=== PATIENT | female | born 1995 | race American Indian/Alaskan Native ===

== ENCOUNTER 2016-11-20 16:10 | Emergency (ER) | payer OTHER ==
[2016-11-20 17:13] VITALS: BMI 30.5
[2016-11-20 17:18] VITALS: PULSE 74; TEMP 98.4
[2016-11-20 19:17] VITALS: BP 140/83; RESP 17; O2SAT 100
--- NOTE | 2016-11-20 19:30 | ED PDOC ---
Arrival/HPI - General Chief Complaint: Abdominal Pain Time Seen by Provider: 11/20/16 17:56 Historian: Patient - History of Present Illness Narrative History of Present Illness (Text): 11/20/16 19:12 21yr old female presents today concerned of . pt states she had unprotected sex with her boyfriend and another person and is worried that she may be . pt states she did take the morning after pill after the unprotected sex with the tonny who is not her boyfriend. pt states her LMP was , and on 11/09 she had 3 days of vaginal bleeding after taking the morning after pill. pt denies any pain. denies urinary symptoms. no fever/chills. no cp or sob. no vaginal bleeding or discharge. no other complaints. Past Medical History - Provider Review Nursing Documentation Reviewed: Yes - Travel History Have you recently traveled outside [place] w/in the past 3 mons?: No - Infectious Disease Hx of Infectious Diseases: None - Cardiac Hx Cardiac Disorders: No - Pulmonary Hx Respiratory Disorders: Yes Hx Asthma: Yes - Neurological Hx Neurological Disorder: No - HEENT Hx HEENT Disorder: No - Renal Hx Renal Disorder: No - Endocrine/Metabolic Hx Endocrine Disorders: No - Hematological/Oncological Hx Blood Disorders: No - Integumentary Hx Dermatological Disorder: No - Musculoskeletal/Rheumatological Hx Musculoskeletal Disorders: No - Gastrointestinal Hx Gastrointestinal Disorders: No - Genitourinary/Gynecological Hx Genitourinary Disorders: No - Psychiatric Hx Psychophysiologic Disorder: No Hx Substance Use: Yes (marijuana) - Surgical History Other/Comment: IUD implant, removed on december 10, 2015. Miscarragie without D&C - Anesthesia Hx Anesthesia: Yes Hx Anesthesia Reactions: No Family/Social History - Physician Review Nursing Documentation Reviewed: Yes Family/Social History: Unknown Family HX Smoking Status: Light Smoker < 10 Cigarettes Daily Hx Alcohol Use: Yes Hx Substance Use: Yes (marijuana) Allergies/Home Meds Allergies/Adverse Reactions: Allergies No Known Allergies Allergy (Verified 11/20/16 17:13) Home Medications: Home Meds Medication Instructions Recorded Confirmed No Known Home Med 11/20/16 11/20/16 Review of Systems - Review of Systems Constitutional: absent: Fatigue, Fevers Respiratory: absent: SOB, Cough Cardiovascular: absent: Chest Pain, Palpitations Gastrointestinal: absent: Abdominal Pain, Constipation, Diarrhea, Nausea, Vomiting Genitourinary Female: absent: Dysuria, Frequency, Hematuria, Vaginal Bleeding, Vaginal Discharge Musculoskeletal: absent: Arthralgias, Back Pain, Neck Pain Skin: absent: Rash, Pruritis Neurological: absent: Headache, Dizziness Physical Exam Vital Signs Reviewed: Yes Vital Signs Temp Pulse Resp BP Pulse Ox 11/20/16 17:16 98.4 F 74 18 122/81 99 Temperature: Afebrile Blood Pressure: Normal Pulse: Regular Respiratory Rate: Normal Appearance: Positive for: Well-Appearing, Non-Toxic, Comfortable Pain Distress: None Mental Status: Positive for: Alert and Oriented X 3 - Systems Exam Head: Present: Atraumatic Mouth: Present: Moist Mucous Membranes Neck: Present: Normal Range of Motion Respiratory/Chest: Present: Clear to Auscultation, Good Air Exchange. No: Respiratory Distress, Accessory Muscle Use Cardiovascular: Present: Regular Rate and Rhythm, Normal S1, S2. No: Murmurs Abdomen: Present: Normal Bowel Sounds. No: Tenderness, Distention, Peritoneal Signs, Rebound, Guarding Upper Extremity: Present: Normal ROM Lower Extremity: Present: Normal ROM Neurological: Present: GCS=15, Speech Normal Skin: Present: Warm, Dry, Normal Color. No: Rashes Psychiatric: Present: Alert, Oriented x 3 Medical Decision Making ED Course and Treatment: 11/20/16 19:31 21yr old female presents today for test. concerned she is . beta hcg negative discussed result with patient. advised safe sex practices. advised f/u with ENVIRONMENTAL COMPLIANCE INSPECTOR > impression; negative test f/u with ENVIRONMENTAL COMPLIANCE INSPECTOR increase fluids safe sex practices return if symptoms worsen,persist or if new symptoms develop. - Lab Interpretations Lab Results: Lab Results 11/20/16 18:05: Beta HCG, Quant < 2.39 Disposition/Present on Arrival - Present on Arrival Any Indicators Present on Arrival: No History of DVT/PE: No History of Uncontrolled Diabetes: No Urinary Catheter: No History of Decub. Ulcer: No History Surgical Site Infection Following: None - Disposition Have Diagnosis and Disposition been Completed?: Yes Diagnosis: Negative test Disposition: HOME/ ROUTINE Disposition Time: 19:11 Patient Plan: Discharge Condition: GOOD Additional Instructions: use safe sex practices follow up with the primary care physician within the next 2 days follow up with the ENVIRONMENTAL COMPLIANCE INSPECTOR within the next 2 days return if symptoms worsen, persist or if new symptoms develop Referrals: Skylar Suazo MD [Primary Care Provider] - Follow up with primary Frida Barraza MD [Staff Provider] - Follow up with primary
== END 2016-11-20 19:17 | disposition home or self-care (01) ==
LOC: ED 16:10
DX: Z32.02 Encounter for pregnancy test, result negative (principal)

== ENCOUNTER 2017-04-30 12:34 | Emergency (ER) | payer OTHER ==
[2017-04-30 12:48] VITALS: RESP 18; TEMP 98.3; BMI 30.1
[2017-04-30 13:42] LABS: PH,URINE 6.5 (4.7-8.0); URINE BILIRUBIN NEGATIVE (NEGATIVE); URINE BLOOD NEGATIVE (NEGATIVE); URINE GLUCOSE (UA) NEGATIVE (NEGATIVE); URINE KETONE NEGATIVE (NEGATIVE); URINE LEUKOCYTE ESTERASE TRACE Leu/uL (NEGATIVE); URINE PROTEIN NEGATIVE mg/dL (<30 mg/dL); URINE UROBILINOGEN 0.2 E.U./dL (<1 E.U./dL)
[2017-04-30 13:48] LABS: URINE APPEARANCE SL CLOUDY (CLEAR); URINE COLOR YELLOW (YELLOW)
[2017-04-30 13:50] LABS: URINE BACTERIA TRACE (NEG); URINE RBC NEGATIVE /hpf (0-2); URINE WBC 0 - 2 /hpf (0-6)
--- NOTE | 2017-04-30 14:22 | ED PDOC ---
Arrival/HPI - General Chief Complaint: Back Pain Time Seen by Provider: 04/30/17 12:51 Historian: Patient - History of Present Illness Narrative History of Present Illness (Text): 04/30/17 14:16 21yo female who present with complaint of left sided lower back pain that radiates to her hip and left pelvic area. Pain radiates down to her left thigh. Staes pain started 7days ago. Pain is worse with movement. she notes that she is currently 5months . Denies vaginal bleeding, nausea, vomiting, urinary symptoms, trauma, any other complaint. Past Medical History - Provider Review Nursing Documentation Reviewed: Yes - Infectious Disease Hx of Infectious Diseases: None - Cardiac Hx Cardiac Disorders: No - Pulmonary Hx Respiratory Disorders: Yes Hx Asthma: Yes - Neurological Hx Neurological Disorder: No - HEENT Hx HEENT Disorder: No - Renal Hx Renal Disorder: No - Endocrine/Metabolic Hx Endocrine Disorders: No - Hematological/Oncological Hx Blood Disorders: No - Integumentary Hx Dermatological Disorder: No - Musculoskeletal/Rheumatological Hx Musculoskeletal Disorders: No - Gastrointestinal Hx Gastrointestinal Disorders: No - Genitourinary/Gynecological Hx Genitourinary Disorders: No - Psychiatric Hx Psychophysiologic Disorder: No Hx Substance Use: No (marijuana) - Surgical History Other/Comment: IUD implant, removed on december 10, 2015. Miscarragie without D&C - Anesthesia Hx Anesthesia: Yes Hx Anesthesia Reactions: No Family/Social History - Physician Review Nursing Documentation Reviewed: Yes Family/Social History: Unknown Family HX Smoking Status: Former Smoker Hx Alcohol Use: Yes Hx Substance Use: No (marijuana) Allergies/Home Meds Allergies/Adverse Reactions: Allergies No Known Allergies Allergy (Verified 04/30/17 12:50) Home Medications: Home Meds Medication Instructions Recorded Confirmed Pnv No.121/Iron/Folic Acid 1 each PO DAILY 04/30/17 04/30/17 [ Multivitamin Tablet] Review of Systems - Physician Review All systems were reviewed & negative as marked: Yes - Review of Systems Constitutional: Normal Eyes: Normal ENT: Normal Respiratory: Normal Cardiovascular: Normal Gastrointestinal: Normal Genitourinary Female: Normal Musculoskeletal: Back Pain Skin: Normal Neurological: Normal Endocrine: Normal Hemo/Lymphatic: Normal Psychiatric: Normal Physical Exam Vital Signs Reviewed: Yes Vital Signs Temp Pulse Resp BP Pulse Ox 04/30/17 17:12 18 99 04/30/17 15:05 75 18 126/65 100 04/30/17 14:05 79 18 128/69 100 04/30/17 12:47 98.3 F 86 18 130/71 100 Temperature: Afebrile Blood Pressure: Normal Pulse: Regular Respiratory Rate: Normal Appearance: Positive for: Well-Appearing, Non-Toxic, Comfortable Pain Distress: None Mental Status: Positive for: Alert and Oriented X 3 - Systems Exam Head: Present: Atraumatic, Normocephalic Pupils: Present: PERRL Extroacular Muscles: Present: EOMI Conjunctiva: Present: Normal Mouth: Present: Moist Mucous Membranes Neck: Present: Normal Range of Motion Respiratory/Chest: Present: Clear to Auscultation, Good Air Exchange. No: Respiratory Distress, Accessory Muscle Use Cardiovascular: Present: Regular Rate and Rhythm, Normal S1, S2. No: Murmurs Abdomen: Present: Distention (Gravidium abdomen), Normal Bowel Sounds. No: Tenderness, Peritoneal Signs Back: No: Midline Tenderness, Paraspinal Tenderness Upper Extremity: Present: Normal Inspection. No: Cyanosis, Edema Lower Extremity: Present: Normal Inspection. No: Edema Neurological: Present: GCS=15, CN II-XII Intact, Speech Normal Skin: Present: Warm, Dry, Normal Color. No: Rashes Psychiatric: Present: Alert, Oriented x 3, Normal Insight, Normal Concentration Medical Decision Making ED Course and Treatment: 04/30/17 20:43 PT was ambulatory in ED. Tolerated juice in ED. UA show trace leukocyte age US 04/30/17 20:45 IMPRESSION: Single live intrauterine fetus in cephalic presentation with mean gestational age of 22 weeks and 2 days. The estimated date of delivery by ultrasound is . The ultrasound dates correspond with the clinical dates. Placenta is fundal and posterior. Please note this is a limited OB ultrasound performed on an emergent basis. Dedicated anatomic survey is advised. Result was DW the pt. she denies vaginal bleeding in ED. She was treated with Macrobid for UTI. Referred to her OB. Tylenol was given in ED. - Lab Interpretations Lab Results: Lab Results 04/30/17 13:16: Urine Color Yellow, Urine Appearance Sl cloudy, Urine pH 6.5, Ur Specific [place] 1.015, Urine Protein Negative, Urine Glucose (UA) Negative, Urine Ketones Negative, Urine Blood Negative, Urine Nitrate Negative, Urine Bilirubin Negative, Urine Urobilinogen 0.2, Ur Leukocyte Esterase Trace H, Urine RBC Negative, Urine WBC 0 - 2, Ur Epithelial Cells 1 - 3, Urine Bacteria Trace - RAD Interpretation Radiology Orders: 04/30/17 13:05 AGE [US] Stat - Medication Orders Current Medication Orders: Discontinued Medications Acetaminophen (Tylenol 325mg Tab) 650 mg PO STAT STA Stop: 04/30/17 13:07 Last Admin: 04/30/17 13:29 Dose: 650 mg MAR Pain/Vitals Document 04/30/17 13:29 [email or web address] (Rec: 04/30/17 13:30 [email or web address] [id number]) Pain Reassessment Is This A Pain ReAssessment? No Sleep Is patient sleeping during reassessment? No Presence of Pain Presence of Pain Yes Pain Scale Used Pain Scale Used Numeric Location Pain Location Body Site Back Description Constant Intensity 4 Pain Behavior Facial Grimacing Aggravating Factors Changing Position Alleviating Factors Medication Disposition/Present on Arrival - Present on Arrival Any Indicators Present on Arrival: No History of DVT/PE: No History of Uncontrolled Diabetes: No Urinary Catheter: No History of Decub. Ulcer: No History Surgical Site Infection Following: None - Disposition Have Diagnosis and Disposition been Completed?: Yes Diagnosis: Back pain, UTI (urinary tract infection) Disposition: HOME/ ROUTINE Disposition Time: 17:00 Patient Plan: Discharge Condition: STABLE Discharge Instructions (ExitCare): Back Pain (ED) Prescriptions: Nitrofurantoin Macrocrystals [Macrobid] 100 mg PO BID #14 cap Referrals: Skylar Suazo MD [Primary Care Provider] - Follow up with primary Forms: [employer] (Maltese), WORK NOTE
[2017-04-30 15:19] VITALS: BP 126/65; PULSE 75
--- NOTE | 2017-04-30 16:37 | US ---
PROCEDURE: OB Pelvic Ultrasound HISTORY: Abdominal pain COMPARISON: None available. FINDINGS: UTERUS: Gestational sac: Single live intrauterine fetus in cephalic presentation. Heart rate: 144 bpm. BPD: 53.5 mm corresponding to 22 weeks and 2 days of gestational age. HC: 72.4 mm corresponding to 22 weeks and 2 days of gestational age. AC: 173.0 mm corresponding to 22 weeks and 2 days of gestational age. FL: 38.3 mm corresponding to 22 weeks and 2 days of gestational age. age (Ultrasound estimated): 22 weeks and 2 days Maria Victoria-gestational hemorrhage: None. Date of delivery (Ultrasound estimated) : 09/01/2017 Placenta is fundal and posterior. CERVIX: Long and closed. No cervical abnormality seen. RIGHT OVARY: Not visualized. LEFT OVARY: Not visualized. FREE FLUID: None. OTHER FINDINGS: None. IMPRESSION: Single live intrauterine fetus in cephalic presentation with mean gestational age of 22 weeks and 2 days. The estimated date of delivery by ultrasound is 09/01/2017. The ultrasound dates correspond with the clinical dates. Placenta is fundal and posterior. Please note this is a limited OB ultrasound performed on an emergent basis. Dedicated anatomic survey is advised.
[2017-04-30 17:13] VITALS: O2SAT 99
== END 2017-04-30 17:13 | disposition home or self-care (01) ==
LOC: ED 12:34
DX: O23.42 Unspecified infection of urinary tract in pregnancy, second trimester (principal); Z3A.22 22 weeks gestation of pregnancy; M54.5 Low back pain

== ENCOUNTER 2017-10-21 15:03 | Emergency (ER) | payer OTHER ==
[2017-10-21 15:03] VITALS: BMI 36.8
[2017-10-21 16:01] LABS: URINE BILIRUBIN NEGATIVE (NEGATIVE); URINE BLOOD TRACE-INTACT (NEGATIVE); URINE GLUCOSE (UA) NEGATIVE (NEGATIVE); URINE LEUKOCYTE ESTERASE LARGE Leu/uL (NEGATIVE); URINE PROTEIN NEGATIVE mg/dL (<30 mg/dL); URINE UROBILINOGEN 0.2 E.U./dL (<1 E.U./dL)
[2017-10-21 16:03] LABS: URINE APPEARANCE SL CLOUDY (CLEAR); URINE COLOR YELLOW (YELLOW)
--- NOTE | 2017-10-21 16:03 | ED PDOC ---
Arrival/HPI - General Chief Complaint: Female Genitourinary Time Seen by Provider: 10/21/17 15:21 Historian: Patient - History of Present Illness Narrative History of Present Illness (Text): 10/21/17 15:38 22yo female with no PMhx who present with one week history of vaginal itching and thick vaginal discharge. Notes that she had a baby 2months ago and not sexually active yet, but then states she had sex once last week. She denies fever, chills, back pain, nausea, vomiting, abdominal pain, urinary frequency, dysuria. Past Medical History - Provider Review Nursing Documentation Reviewed: Yes - Infectious Disease Hx of Infectious Diseases: None - Cardiac Hx Cardiac Disorders: No Hx Hypertension: No - Pulmonary Hx Respiratory Disorders: Yes Hx Asthma: Yes - Neurological Hx Neurological Disorder: No - HEENT Hx HEENT Disorder: No - Renal Hx Renal Disorder: No - Endocrine/Metabolic Hx Endocrine Disorders: No - Hematological/Oncological Hx Blood Disorders: No - Integumentary Hx Dermatological Disorder: No - Musculoskeletal/Rheumatological Hx Musculoskeletal Disorders: Yes Other/Comment: DVT L LEG - Gastrointestinal Hx Gastrointestinal Disorders: No - Genitourinary/Gynecological Hx Genitourinary Disorders: No - Psychiatric Hx Depression: No Hx Substance Use: (marijuana) - Surgical History Hx Vascular Surgery: Yes - Anesthesia Hx Anesthesia: Yes Hx Anesthesia Reactions: No Family/Social History - Physician Review Nursing Documentation Reviewed: Yes Family/Social History: Unknown Family HX Smoking Status: Never Smoked Hx Alcohol Use: Yes Frequency of alcohol use: Socially Hx Substance Use: (marijuana) Allergies/Home Meds Allergies/Adverse Reactions: Allergies No Known Allergies Allergy (Verified 10/21/17 15:12) Home Medications: Home Meds Medication Instructions Recorded Confirmed Enoxaparin Sodium [Lovenox] 150 mg SC DAILY 10/21/17 10/21/17 Review of Systems - Physician Review All systems were reviewed & negative as marked: Yes - Review of Systems Constitutional: Normal Eyes: Normal ENT: Normal Respiratory: Normal Cardiovascular: Normal Gastrointestinal: Normal Genitourinary Female: Vaginal Discharge. absent: Dysuria, Frequency Musculoskeletal: Normal Skin: Normal Neurological: Normal Endocrine: Normal Hemo/Lymphatic: Normal Psychiatric: Normal Physical Exam Vital Signs Reviewed: Yes Vital Signs Temp Pulse Resp BP Pulse Ox 10/21/17 15:48 82 10/21/17 15:12 98.7 F 88 16 114/78 99 Temperature: Afebrile Blood Pressure: Normal Pulse: Regular Respiratory Rate: Normal Appearance: Positive for: Well-Appearing, Non-Toxic, Comfortable Pain Distress: None Mental Status: Positive for: Alert and Oriented X 3 - Systems Exam Head: Present: Atraumatic, Normocephalic Pupils: Present: PERRL Extroacular Muscles: Present: EOMI Conjunctiva: Present: Normal Mouth: Present: Moist Mucous Membranes Neck: Present: Normal Range of Motion Respiratory/Chest: Present: Clear to Auscultation, Good Air Exchange. No: Respiratory Distress, Accessory Muscle Use Cardiovascular: Present: Regular Rate and Rhythm, Normal S1, S2. No: Murmurs Abdomen: No: Tenderness, Distention, Peritoneal Signs, Rebound, Guarding, McBurney's Point Tender, Rovsing's Sign Present Genitourinary/Pelvic Exam: Present: Vaginal Discharge (Thick whitish discharge noted on vault). No: Cervical Motion Tendernes Back: Present: Normal Inspection. No: CVA Tenderness Upper Extremity: Present: Normal Inspection. No: Cyanosis, Edema Lower Extremity: Present: Normal Inspection. No: Edema Neurological: Present: GCS=15, CN II-XII Intact, Speech Normal Skin: Present: Warm, Dry, Normal Color. No: Rashes Psychiatric: Present: Alert, Oriented x 3, Normal Insight, Normal Concentration Medical Decision Making ED Course and Treatment: 10/21/17 16:39 Pt in ED for stated history. She states she is currently not breast feeding. She was treated for UTI and Candiasis. Chlamydia/gono culture ordered. Advised to drink plenty of fluid and f/u with her PMD - Lab Interpretations Lab Results: Lab Results 10/21/17 15:45: Urine Color Yellow, Urine Appearance Sl cloudy, Urine pH 6.0, Ur Specific [place] 1.025, Urine Protein Negative, Urine Glucose (UA) Negative, Urine Ketones Negative, Urine Blood Trace-intact H, Urine Nitrate Negative, Urine Bilirubin Negative, Urine Urobilinogen 0.2, Ur Leukocyte Esterase Large H , Urine RBC 2 - 5, Urine WBC 25 - 30, Ur Epithelial Cells 6 - 8, Urine Bacteria Many - Medication Orders Current Medication Orders: Fluconazole (Diflucan) 150 mg PO ONCE STA PRN Reason: Protocol Stop: 10/21/17 16:39 Discontinued Medications Cephalexin Monohydrate (Keflex) 500 mg PO STAT STA PRN Reason: Protocol Stop: 10/21/17 16:22 Last Admin: 10/21/17 16:33 Dose: 500 mg Disposition/Present on Arrival - Present on Arrival Any Indicators Present on Arrival: No History of DVT/PE: Yes History of Uncontrolled Diabetes: No Urinary Catheter: No History of Decub. Ulcer: No History Surgical Site Infection Following: None - Disposition Have Diagnosis and Disposition been Completed?: Yes Diagnosis: Vaginal candidiasis, UTI (urinary tract infection) Disposition: HOME/ ROUTINE Disposition Time: 16:45 Patient Plan: Discharge Condition: STABLE Discharge Instructions (ExitCare): Urinary Tract Infections in Adults, Vaginal Yeast Infection (DC) Additional Instructions: Follow up with your Doctor Return to ED for any new or worsening symptoms Prescriptions: Cephalexin [Keflex] 500 mg PO QID #28 capsule Referrals: PCP,NO [Primary Care Provider] - Follow up with primary [facility] [place], [place] [Outside] - Follow up with primary [facility] [Outside] - Follow up with primary Forms: [employer] (Uzbek)
[2017-10-21 16:11] LABS: URINE BACTERIA MANY (NEG); URINE WBC 25 - 30 /hpf (0-6)
[2017-10-21 17:03] VITALS: PULSE 79
[2017-10-21 17:06] VITALS: BP 127/52; RESP 17; TEMP 98.4; O2SAT 99
== END 2017-10-21 17:06 | disposition home or self-care (01) ==
LOC: ED 15:03
DX: N39.0 Urinary tract infection, site not specified (principal); B37.3 Candidiasis of vulva and vagina

== ENCOUNTER 2018-06-25 15:13 | Emergency (ER) | payer SELFPAY ==
[2018-06-25 15:18] VITALS: RESP 18; BMI 34.6
--- NOTE | 2018-06-25 16:17 | ED PDOC ---
Arrival/HPI - General Historian: Patient - History of Present Illness Narrative History of Present Illness (Text): 22 y/o female with PMH of DVT/PE presents to the ED c/o intermittent lower abdominal pain x 1 month. States pain occurs in brief episodes, is achey, and occurs every other day. Associated nausea, diarrhea, and intermittent vomiting. One episode of vaginal bleeding last week, no clots. No pain or other physical complaints currently. Unknown LMP. Denies fever, chills, back pain, constipation, sinus congestion, cough, dysuria, hematuria, urinary frequency, vaginal discharge, vaginal odor, calf swelling, calf pain, SOB, chest pain, or any other associated symptoms. <Kelly Linton - Last Filed: 06/25/18 23:31> <Lenin Davis - Last Filed: 06/26/18 07:47> - General Chief Complaint: Abdominal Pain Time Seen by Provider: 06/25/18 15:30 Past Medical History - Provider Review Nursing Documentation Reviewed: Yes - Infectious Disease Hx of Infectious Diseases: None - Cardiac Hx Cardiac Disorders: No Hx Hypertension: No - Pulmonary Hx Respiratory Disorders: Yes Hx Asthma: Yes - Neurological Hx Neurological Disorder: No - HEENT Hx HEENT Disorder: No - Renal Hx Renal Disorder: No - Endocrine/Metabolic Hx Endocrine Disorders: No - Hematological/Oncological Hx Blood Disorders: No - Integumentary Hx Dermatological Disorder: No - Musculoskeletal/Rheumatological Hx Musculoskeletal Disorders: Yes Other/Comment: DVT L LEG - Gastrointestinal Hx Gastrointestinal Disorders: No - Genitourinary/Gynecological Hx Genitourinary Disorders: No - Psychiatric Hx Depression: No Hx Substance Use: (marijuana) - Surgical History Hx Vascular Surgery: Yes - Anesthesia Hx Anesthesia: Yes Hx Anesthesia Reactions: No <Kelly Linton - Last Filed: 06/25/18 23:31> Family/Social History - Physician Review Nursing Documentation Reviewed: Yes Family/Social History: No Known Family HX Smoking Status: Never Smoked Hx Alcohol Use: Yes Hx Substance Use: (marijuana) <Kelly Linton - Last Filed: 06/25/18 23:31> Allergies/Home Meds <Kelly Linton - Last Filed: 06/25/18 23:31> <Lenin Davis - Last Filed: 06/26/18 07:47> Allergies/Adverse Reactions: Allergies No Known Allergies Allergy (Verified 10/21/17 15:12) Home Medications: Home Meds Medication Instructions Recorded Confirmed Enoxaparin Sodium [Lovenox] 150 mg SC DAILY 10/21/17 10/21/17 Review of Systems - Physician Review All systems were reviewed & negative as marked: Yes - Review of Systems Constitutional: Normal. absent: Fatigue, Weight Change, Fevers, Night Sweats, Other Eyes: Normal. absent: Vision Changes, Photophobia, Eye Pain, Other ENT: Normal. absent: Hearing Changes, Tinnitus, TMJ Pain, Voice Changes, Sore Throat, Rhinorrhea, Epistaxis, Sinus Congestion, Other Respiratory: Normal. absent: SOB, Cough, Sputum, Wheezing, Other Cardiovascular: Normal. absent: Chest Pain, Palpitations, Edema, Calf Pain, GOMES, Orthopnea, SY, Syncope, Other Gastrointestinal: Abdominal Pain, Diarrhea, Vomiting. absent: Stool Changes, Constipation, Nausea, Appetite Changes, Hematochezia, Hematemesis, Anorexia, Food Intolerance, Other Genitourinary Female: Normal. absent: Dysuria, Frequency, Hematuria, Urine Output Changes, Vaginal Bleeding, Vaginal Discharge, Other Musculoskeletal: Normal. absent: Arthralgias, Back Pain, Neck Pain, Joint Swelling, Myalgias, Other Skin: Normal. absent: Rash, Pruritis, Skin Lesions, Laceration, Abscess, Ulcer, Cellulitis, Other Neurological: Normal. absent: Headache, Dizziness, Focal Weakness, Gait Changes, Speech Changes, SC, Facial Droop, DE, Disequilibrium, SE, Seizure, Other Endocrine: Normal. absent: Diaphoresis, Polyuria, Polydipsia, Other Hemo/Lymphatic: Normal. absent: Adenopathy, Easy Bleeding, Easy Bruising, Other Psychiatric: Normal <Kelly Linton - Last Filed: 06/25/18 23:31> Physical Exam Vital Signs Reviewed: Yes Vital Signs Temp Pulse Resp BP Pulse Ox 06/25/18 15:15 98.0 F 102 H 18 110/75 98 Temperature: Afebrile Blood Pressure: Normal Pulse: Regular Respiratory Rate: Normal Appearance: Positive for: Well-Appearing, Non-Toxic, Comfortable Pain Distress: None Mental Status: Positive for: Alert and Oriented X 3 - Systems Exam Head: Present: Atraumatic, Normocephalic Pupils: Present: PERRL Extroacular Muscles: Present: EOMI Conjunctiva: Present: Normal Mouth: Present: Moist Mucous Membranes Neck: Present: Normal Range of Motion, MIDLINE TENDERNESS. No: Lymphadenopathy Respiratory/Chest: Present: Clear to Auscultation, Good Air Exchange. No: Respiratory Distress, Accessory Muscle Use Cardiovascular: Present: Regular Rate and Rhythm, Normal S1, S2, Peripheal Pulses Present. No: Murmurs Abdomen: Present: Normal Bowel Sounds. No: Tenderness, Distention, Peritoneal Signs, Rebound, Guarding Back: Present: Normal Inspection. No: CVA Tenderness, Midline Tenderness, Paraspinal Tenderness Upper Extremity: Present: Normal Inspection, Normal ROM, NORMAL PULSES, Neurov ascularly Intact, Capillary Refill < 2s. No: Cyanosis, Edema Lower Extremity: Present: Normal Inspection, NORMAL PULSES, Normal ROM, Neurovascularly Intact, Capillary Refill < 2 s. No: Edema Neurological: Present: GCS=15, CN II-XII Intact, Speech Normal, Motor Func Grossly Intact, Normal Sensory Function, Gait Normal Skin: Present: Warm, Dry, Normal Color. No: Rashes Lymphatic: No: Cervical Adenopathy Psychiatric: Present: Alert, Oriented x 3, Normal Insight, Normal Concentration, Normal Affect, Normal Mood <Kelly Linton - Last Filed: 06/25/18 23:31> Vital Signs Temp Pulse Resp BP Pulse Ox 06/25/18 19:13 98 F 97 H 18 113/75 100 06/25/18 15:15 98.0 F 102 H 18 110/75 98 <Lenin Davis - Last Filed: 06/26/18 07:47> Medical Decision Making ED Course and Treatment: Initial Plan: * CBC, CMP * Coags * POC preg * UA, culture * TV US * IVF Patient well-appearing on exam, texting and talking with friend in the room. POC preg positive. Will get hcg quant, type and screen, and change TV US to OB. CBC: leukocytosis at 12.2 CMP: K 3.4, patient advised to increase potassium in her diet; otherwise wnl Coags: wnl UA: UTI, trace protein TV US: Live IUP at 17 weeks When bringing patient copy of ultrasound report, patient found to be dressed, attempting to remove her IV. Advised to let nursing remove the IV. Patient ask ing to leave AMA. Will sign patient out AMA. 19:15 Discussed risks of leaving AMA with patient at length, to include , disability, worsening of symptoms, and /disability of fetus. Explained the indications for Rhogam and importance of receiving injection if indicated. Patient verbalized understanding and was given opportunity to ask questions. Will discharge with prescription for Keflex for UTI. Advised to followup with OBGYN and primary doctor within 2 days. 19:30 Patient left AMA, pending type and screen, IVF, and final disposition. Patient given dose of keflex before she left, given prescription for home. - Lab Interpretations Lab Results: 06/25/18 17:00 06/25/18 17:00 Lab Results 06/25/18 17:00: Beta HCG, Quant 04503.00 H 06/25/18 17:00: PT 11.1, INR 0.97, APTT 27.7 06/25/18 17:00: Sodium 138, Potassium 3.4 L, Chloride 107, Carbon Dioxide 24, Anion Gap 10, BUN 7, Creatinine 0.5 L, Est GFR ( Amer) > 60, Est GFR (Non-Af Amer) > 60, Random Glucose 78, Calcium 8.6, Phosphorus 3.9, Magnesium 1.8, Total Bilirubin 0.1 L, AST 26, ALT 34, Alkaline Phosphatase 47, Total Protein 6.9, Albumin 3.5, Globulin 3.4, Albumin/Globulin Ratio 1.0 L 06/25/18 17:00: Urine Color Yellow, Urine Appearance Slight-cloudy, Urine pH 6.0, Ur Specific [place] >= 1.030, Urine Protein Trace H, Urine Glucose (UA) Negative, Urine Ketones Trace H, Urine Blood Negative, Urine Nitrate Negative, Urine Bilirubin Negative, Urine Urobilinogen 0.2, Ur Leukocyte Esterase Small H, Urine RBC 0 - 2, Urine WBC 10 - 15 H, Ur Epithelial Cells 4 - 5, Urine Bacteria Small, Urine Other Mucus 06/25/18 17:00: WBC 12.2 H, RBC 4.00, Hgb 12.5, Hct 36.3, MCV 90.8, MCH 31.3, MCHC 34.4, RDW 13.5, Plt Count 306, MPV 9.3, Gran % 67.5, Lymph % (Auto) 23.3, [place] % (Auto) 7.3 H, Eos % (Auto) 1.7, Baso % (Auto) 0.2, Gran # 8.26 H, Lymph # (Auto) 2.9, [place] # (Auto) 0.9 H, Eos # (Auto) 0.2, Baso # (Auto) 0.02 I have reviewed the lab results: Yes - RAD Interpretation Narrative RAD Interpretations (Text): Ultrasound: Findings: There is a single living fetus in variable presentation. Amniotic fluid volume is within normal limits. Fundal placenta. Bilateral ovaries are not visualized. There are no adnexal masses or cysts evident. Cervix length measures approximately 4.3 cm. Measurements and calculations: Fetus has a composite sonographic age of 17 weeks 5 days. This calculation is based on the biparietal diameter, head circumference, abdominal circumference, and femur length. Estimated heart rate 151.2 beats per min. Estimated weight 189.29 g. Impression: Single living fetus with a composite sonographic age of 17 weeks 5 days. Estimated heart rate 151.2 beats per min. Whole anatomic survey of the fetus should be performed on an outpatient elective basis as clinically warranted. Radiology Orders: 06/25/18 15:41 TRANSVAGINAL [US] Stat <Kelly Linton - Last Filed: 06/25/18 23:31> - Lab Interpretations Lab Results: 06/25/18 17:00 06/25/18 17:00 Lab Results 06/25/18 17:00: Beta HCG, Quant 63381.00 H 06/25/18 17:00: PT 11.1, INR 0.97, APTT 27.7 06/25/18 17:00: Sodium 138, Potassium 3.4 L, Chloride 107, Carbon Dioxide 24, Anion Gap 10, BUN 7, Creatinine 0.5 L, Est GFR ( Amer) > 60, Est GFR (Non-Af Amer) > 60, Random Glucose 78, Calcium 8.6, Phosphorus 3.9, Magnesium 1.8, Total Bilirubin 0.1 L, AST 26, ALT 34, Alkaline Phosphatase 47, Total Protein 6.9, Albumin 3.5, Globulin 3.4, Albumin/Globulin Ratio 1.0 L 06/25/18 17:00: Urine Color Yellow, Urine Appearance Slight-cloudy, Urine pH 6.0, Ur Specific [place] >= 1.030, Urine Protein Trace H, Urine Glucose (UA) Negative, Urine Ketones Trace H, Urine Blood Negative, Urine Nitrate Negative, Urine Bilirubin Negative, Urine Urobilinogen 0.2, Ur Leukocyte Esterase Small H, Urine RBC 0 - 2, Urine WBC 10 - 15 H, Ur Epithelial Cells 4 - 5, Urine Bacteria Small, Urine Other Mucus 06/25/18 17:00: WBC 12.2 H, RBC 4.00, Hgb 12.5, Hct 36.3, MCV 90.8, MCH 31.3, MCHC 34.4, RDW 13.5, Plt Count 306, MPV 9.3, Gran % 67.5, Lymph % (Auto) 23.3, [place] % (Auto) 7.3 H, Eos % (Auto) 1.7, Baso % (Auto) 0.2, Gran # 8.26 H, Lymph # (Auto) 2.9, [place] # (Auto) 0.9 H, Eos # (Auto) 0.2, Baso # (Auto) 0.02 - RAD Interpretation Radiology Orders: 06/25/18 15:41 AGE [US] Stat - Medication Orders Current Medication Orders: Discontinued Medications Cephalexin Monohydrate (Keflex) 500 mg PO STAT STA; Protocol Stop: 06/25/18 19:00 Last Admin: 06/25/18 19:20 Dose: 500 mg Sodium Chloride (Sodium Chloride 0.9%) 1,000 mls @ 999 mls/hr IV .Q1H1M STA Stop: 06/25/18 19:43 Last Admin: 06/25/18 19:15 Dose: Not Given Non-Admin Reason: pt refused <Lenin Davis - Last Filed: 06/26/18 07:47> - PA / COMMUNICATIONS ASSOCIATE / Resident Statement / has reviewed & agrees with the documentation as recorded. <Lenin Davis - Last Filed: 06/26/18 07:47> Disposition/Present on Arrival - Present on Arrival Any Indicators Present on Arrival: Yes History of DVT/PE: Yes History of Uncontrolled Diabetes: No Urinary Catheter: No History Surgical Site Infection Following: None - Disposition Have Diagnosis and Disposition been Completed?: No Disposition Time: 19:03 <Kelly Linton - Last Filed: 06/25/18 23:31> <Lenin Davis - Last Filed: 06/26/18 07:47> - Disposition Diagnosis: Left against medical advice, UTI (urinary tract infection), Disposition: AGAINST MEDICAL ADVICE Condition: STABLE Discharge Instructions (ExitCare): Screenings, Urinary Tract Infection, Adult (DC), Leaving Against Medical Advice Additional Instructions: Take antibiotics as prescribed, two times daily for one week Take vitamins once daily Followup with primary within 2 days Followup with OBGYN within 2 days Return to ER if you wish to be re-evaluated or for new/worsening symptoms Prescriptions: Cephalexin [Keflex] 500 mg PO BID 7 Days #14 capsule 21/Iron Fu/Folic Acid [ Complete Caplet] 1 each PO DAILY #60 tablet [facility] - Follow up with primary Delfino Arboleda MD [Staff Provider] - Follow up with primary Forms: [employer] ([place])
[2018-06-25 17:08] LABS: BASO # 0.02 K/mm3 (0.0-2.0); BASO % 0.2 % (0.0-3.0); EOS # 0.2 (0.0-0.7); EOS % 1.7 % (1.5-5.0); GRAN # 8.26 (1.4-6.5); GRAN % 67.5 % (50.0-68.0); HEMOGLOBIN 12.5 g/dL (12.0-16.0); LYMPH # 2.9 (1.2-3.4); LYMPH % 23.3 % (22.0-35.0); MEAN CELL VOLUME 90.8 fl (80.0-105.0); MEAN CORPUSCULAR HEMOGLOBIN 31.3 pg (25.0-35.0); MEAN CORPUSCULAR HGB CONC 34.4 g/dl (31.0-37.0); MEAN PLATELET VOLUME 9.3 fl (7.0-11.0); MONO # 0.9 (0.1-0.6); MONO % 7.3 % (1.0-6.0); RED CELL DISTRIBUTION WIDTH 13.5 % (11.5-14.5); WHITE BLOOD COUNT 12.2 10^3/uL (4.5-11.0)
[2018-06-25 17:09] LABS: URINE APPEARANCE SLIGHT-CLOUDY (CLEAR); URINE BILIRUBIN NEGATIVE (NEGATIVE); URINE BLOOD NEGATIVE (NEGATIVE); URINE COLOR YELLOW (YELLOW); URINE GLUCOSE (UA) NEGATIVE (NEGATIVE); URINE LEUKOCYTE ESTERASE SMALL Leu/uL (NEGATIVE); URINE PROTEIN TRACE mg/dL (<30 mg/dL); URINE UROBILINOGEN 0.2 E.U./dL (<1 E.U./dL)
[2018-06-25 17:18] LABS: INR 0.97; PARTIAL THROMBOPLASTIN TIME 27.7 Seconds (25.1-36.5); PROTHROMBIN TIME 11.1 SECONDS (9.4-12.5)
[2018-06-25 17:19] LABS: ALBUMIN 3.5 g/dL (3.0-4.8); ALT/SGPT 34 U/L (7-56); AST/SGOT 26 U/L (14-36); BLOOD UREA NITROGEN 7 mg/dL (7-21); CALCIUM 8.6 mg/dL (8.4-10.5); GFR NON-AFRICAN AMERICAN > 60; URINE RBC 0 - 2 /hpf (0-2)
[2018-06-25 17:20] LABS: URINE BACTERIA SMALL /hpf
--- NOTE | 2018-06-25 18:33 | US ---
Indication: intermittent lower abdominal pain Comparison: age ultrasound performed 04/30/17. No more recent study available for comparison. Technique: Real-time ultrasound was performed through the pelvis. Findings: There is a single living fetus in variable presentation. Amniotic fluid volume is within normal limits. Fundal placenta. Bilateral ovaries are not visualized. There are no adnexal masses or cysts evident. Cervix length measures approximately 4.3 cm. Measurements and calculations: Fetus has a composite sonographic age of 17 weeks 5 days. This calculation is based on the biparietal diameter, head circumference, abdominal circumference, and femur length. Estimated heart rate 151.2 beats per min. Estimated weight 189.29 g. Impression: Single living fetus with a composite sonographic age of 17 weeks 5 days. Estimated heart rate 151.2 beats per min. Whole anatomic survey of the fetus should be performed on an outpatient elective basis as clinically warranted.
[2018-06-25] MEDS ORDERED: Sodium Chloride 0.9% 1,000 ML IV STA (18:43)
[2018-06-25 19:14] VITALS: BP 113/75; PULSE 97; TEMP 98; O2SAT 100
== END 2018-06-25 19:30 | disposition left against medical advice (07) ==
LOC: ED 15:13
DX: O23.42 Unspecified infection of urinary tract in pregnancy, second trimester (principal); Z3A.17 17 weeks gestation of pregnancy